=== PATIENT | male | born 1950 | race Caucasian/White ===

== ENCOUNTER 2018-06-26 18:34 | Inpatient (IN) | payer OTHER ==
--- NOTE | 2018-06-26 19:15 | EDPHY ---
H & P Stated Complaint: Colon CA with mets to liver w/ fever x 2 days and nausea/ vomiting Time Seen by Provider: 06/26/18 19:15 HPI/ROS: CHIEF COMPLAINT: Fever, N/V, red and swollen stoma HISTORY OF PRESENT ILLNESS: The patient is a 67 y/o male with metastatic stage 4 colon cancer on chemotherapy arriving with his complaining of intermittent fevers, nausea, vomiting, loose stool,and a red, swollen stoma over the last 5 days. He reports his fever reached 101F today and he has been treating with Aleve, though he vomited at least one dose of this today. He started chemotherapy treatment [address] Diamond and his most recent treatment was 10 days ago. His reports he is losing weight. Today he has vomited several times, most recently after trying to eat 2 hours ago. His administered SL Zofran after this episode. His oral intake has been less than normal. Both are concerned about the appearance of his stoma--it seems red and swollen. His stool has been loose/liquid. He denies dyspnea, chest pain, abdominal pain, recent illness, or recent trauma. REVIEW OF SYSTEMS: A ten system review of systems was performed and is negative with the exception of the items mentioned in the HPI. Past medical history: Metastatic colon cancer stage 4 Past surgical history: Colectomy; CABG Family history: Noncontributory Social history: at bedside. Lives at [facility]. Oncologist: Dr. Diamond. General Appearance: Alert. Vital signs reviewed. HR 122, afebrile. Eyes: Pupils equal and round, no conjunctival injection, no discharge. Anicteric. ENT, Mouth: Mucous membranes are moist, no oropharyngeal erythema or edema. Neck: No lymphadenopathy, supple. Respiratory: Lungs are clear to auscultation; no wheezes, rales, or rhonchi. Cardiovascular: Tachycardic regular; no murmur, rub, or gallop. Port right chest. Gastrointestinal: Abdomen is soft and nontender, no masses or organomegaly. Stoma: beefy red and protruding Skin: Warm and dry, no rashes on exposed skin, normal color. Back: Nontender to palpation over the thoracolumbar spine. No CVAT. Extremities: No lower extremity edema, no calf tenderness or swelling. Neurological: Alert and oriented. Moving all four extremities easily and equally. Psychiatric: Normal affect. - Medical/Surgical History Hx Asthma: No Hx Chronic Respiratory Disease: No Hx Diabetes: No Hx Cardiac Disease: No Hx Renal Disease: No Hx Cirrhosis: No Hx Alcoholism: No Hx HIV/AIDS: No Hx Splenectomy or Spleen Trauma: No Other PMH: Colon CA with mets to liver, [place] - Social History Smoking Status: Never smoked Constitutional: Initial Vital Signs Temperature (C) 36.6 C 06/26/18 18:43 Heart Rate 122 H 06/26/18 18:43 Respiratory Rate 18 06/26/18 18:43 Blood Pressure 148/97 H 06/26/18 18:43 O2 Sat (%) 96 06/26/18 18:43 O2 Delivery Mode Room Air O2 (L/minute) 2 Allergies/Adverse Reactions: No Known Allergies Allergy (Unverified 06/26/18 18:42) Home Medications: Medication Instructions Recorded Multivitamins [Multivitamin (*)] 1 each PO DAILY 06/27/18 Naproxen Sodium [Aleve 220 MG (*)] 220 mg PO BID PRN 06/27/18 OLANZapine [ZyPREXA 2.5 mg (*)] 2.5 mg PO DAILY 06/27/18 Prochlorperazine Maleate 10 mg PO QID PRN 06/27/18 [Compazine 10mg (*)] oxyCODONE IR [Oxycodone Ir (*)] 15 mg PO QID PRN 06/27/18 Medical Decision Making - Diagnostics Imaging: I viewed and interpreted images myself ED Course/Re-evaluation: Plan for IV, labs, UA, EKG, chest x-ray. 1L IV NS ordered. Chest x-ray: no pneumonia. Patient is hypokalemic at 2.9, likely due to vomiting. 40meq potassium ordered. He has not vomited in ED. Stool in bag is brown, soft. Afebrile. Tachycardia improving with IVF. He is being admitted for continued anti-emetics, IVF, might need stool studies if has diarrhea. I suspect ostomy prolapse, do not find other problems with ostomy, aside from small amount of leakage. I do not recommend antibiotics at this time. WBC not elevated. No urinary symptoms, although UA abnormal. - Data Points Laboratory Results: Laboratory Results 06/27/18 05:00 06/27/18 05:00 Medications Given: Discontinued Medications Sodium Chloride (Ns) 1,000 mls @ 0 mls/hr IV ONCE ONE; Wide Open PRN Reason: Protocol Stop: 06/26/18 19:41 Last Admin: 06/26/18 19:35 Dose: 1,000 mls Sodium Chloride (Ns) 1,000 mls @ 75 mls/hr IV CONT MARIE Stop: 12/24/18 00:29 Last Admin: 06/27/18 14:02 Dose: 1,000 mls Ondansetron HCl (Zofran) 4 mg IVP Q4HRS PRN PRN Reason: Nausea/Vomiting, Can't Take PO Stop: 12/24/18 00:25 Last Admin: 06/27/18 11:06 Dose: 4 mg Ondansetron HCl (Zofran Odt) 4 mg PO Q4HRS PRN PRN Reason: Nausea/Vomiting, Use 1st Stop: 12/24/18 00:25 Last Admin: 06/27/18 19:27 Dose: 4 mg Oxycodone HCl (Oxycodone Ir) 5 - 10 mg PO Q3HRS PRN PRN Reason: Pain, Severe Able to Take PO Stop: 07/07/18 00:25 Last Admin: 06/28/18 10:11 Dose: 10 mg Potassium Chloride (Klor-Con) 40 meq PO ONCE ONE Stop: 06/26/18 21:49 Last Admin: 06/26/18 21:57 Dose: 40 meq Potassium Chloride (Klor-Con) 10 - 40 meq PO ONCE ONE PRN Reason: Protocol Stop: 06/27/18 10:53 Last Admin: 06/27/18 11:02 Dose: 40 meq Potassium Chloride (Klor-Con) 10 - 40 meq PO ONCE ONE PRN Reason: Protocol Stop: 06/27/18 19:24 Last Admin: 06/27/18 20:14 Dose: 30 meq Potassium Chloride (Klor-Con) 20 meq PO ONCE ONE PRN Reason: Protocol Stop: 06/28/18 07:15 Last Admin: 06/28/18 08:11 Dose: 20 meq Departure - Departure Disposition: [facility] Acute Clinical Impression: Hypokalemia, Intestinal stoma prolapse Colon cancer Qualifiers: Colon location: unspecified part of colon Qualified Code(s): C18.9 - Malignant neoplasm of colon, unspecified Fever Qualifiers: Fever type: unspecified Qualified Code(s): R50.9 - Fever, unspecified Condition: Fair Report Scribed for: Roopa Gomez Report Scribed by: Yana Araujo Date of Report: 06/26/18 Time of Report: 20:53 Physician Review and Approval Statement: 06/26/18 19:15 Portions of this note were transcribed by the medical van driver. I, Dr. Roopa Gomez, personally performed the history, physical exam, and medical decision- making; and confirmed the accuracy of the information in the transcribed note.
[2018-06-26] MEDS ORDERED: NS 1,000 ML IV ONE (19:40)
[2018-06-26 19:57] LABS: PLATELET COUNT 60 10^3/uL (150-400)
[2018-06-26 20:06] LABS: INR 1.22 (0.83-1.16); PROTIME(PATIENT) 15.6 SEC (12.0-15.0)
[2018-06-26] MEDS ORDERED: POTASSIUM CL 20 MEQ TAB PO ONE (21:48)
[2018-06-27] MEDS ORDERED: ACETAMINOPHEN 325 MG TAB PO PRN (00:26)
[2018-06-27] MEDS ORDERED: ONDANSETRON DISINTEGRATING 4 MG TAB PO PRN (00:26)
[2018-06-27] MEDS ORDERED: ONDANSETRON 4 MG/2 ML VIAL IVP PRN (00:26)
[2018-06-27] MEDS: NS 1,000 ML IV SCH ×2 (00:48→14:02)
[2018-06-27 05:39] LABS: PLATELET COUNT 43 10^3/uL (150-400)
[2018-06-27] MEDS ORDERED: PROTOCOL POTASSIUM 1 DOSE MISC PRN (05:50)
--- NOTE | 2018-06-27 08:47 | PDGENHP ---
History and Physical - Chief Complaint Fever nausea vomiting and diarrhea - History of Present Illness Source-patient provides history appears reliable. EMR was reviewed and case discussed with ED provider. HPI-this is a very pleasant 67-year-old gentleman with past medical history significant for stage IV metastatic colon cancer, chronic pain, CAD status post CABG who presents emergency department today with complaints of 5 days of fevers chills nausea and vomiting. Patient also concerned regarding protrusion of his stoma and liquid diarrhea. Patient reports home temperature of 101 F. He has had declined oral intake and report of some weight loss. Patient reports significant fatigue as well today. His symptoms have resolved since his admission from the ER. Patient received chemotherapy and followed by Dr. Diamond (oncology) with his last dose being 10 days ago. Patient denies any hematemesis. He does report also seeing ben blood in his ostomy which had him concerned this was 2 days ago. He has not been on antibiotic therapy recently. Currently patient reports that he just feels really tired and wants to sleep. History Information - Allergies/Home Medication List Allergies/Adverse Reactions: No Known Allergies Allergy (Unverified 06/26/18 18:42) Home Medications: OLANZapine 06/26/18 [Last Taken Unknown] Zofran 06/26/18 [Last Taken Unknown] oxyCODONE CR 06/26/18 [Last Taken Unknown] I have personally reviewed and updated: family history, medical history, social history, surgical history - Past Medical History Additional medical history: Colon cancer stage IV. CAD with history DE in 2008 status post a CABG. Chronic pain with history of opiate use - Surgical History Additional surgical history: CABG, cath, colonoscopy, colon resection with ostomy - Family History Additional family history: Mother - with history of colon cancer - Social History Smoking Status: Never smoked Alcohol Use: None Drug Use: None Additional social history: Patient is and lives at [facility]. Cor status is full. Review of Systems Review of Systems: ROS: 10pt was reviewed & negative except for what was stated in HPI & below Physical Exam Physical Exam: Selected Entries 06/26/18 18:43 Blood Pressure Automatic Method Heart Rate 122 H Respiratory 18 Rate O2 Sat (%) 96 Temperature (C) 36.6 C Blood Pressure 148/97 H Mean Arterial 114 H Pressure (MAP) O2 Delivery Room Air Mode Temperature Oral Source Temp Pulse Resp BP Pulse Ox 36.8 C 85 18 115/75 97 11/03/18 07:50 06/27/18 07:50 06/27/18 07:50 06/27/18 07:50 06/27/18 07:50 O2 (L/minute) 2 Constitutional: no apparent distress, not in pain, chronically ill appearing, uncomfortable (Mild with movement), cachectic, other (NAD. Patient appears chronically ill and pale. He is asleep in bed and falls asleep intermittently during the interview. Does appear fatigued.) Eyes: PERRL (Decreased reactivity light bilaterally but and symmetric.), anicteric sclera, EOMI, No scleral injection Ears, Nose, Mouth, Throat: dry mucous membranes, other (No nasal discharge.), No no oral mucosal ulcers, No poor dentition Cardiovascular: regular rate and rhythym, no murmur, rub, or gallop, No edema Peripheral Pulses: 1+: dorsalis-pedis (R), dorsalis-pedis (L) Respiratory: no respiratory distress, no rales or rhonchi, clear to auscultation Gastrointestinal: normoactive bowel sounds, soft, non-tender abdomen, no palpable masses, other (Patient with stoma opening in the left lower quadrant. The margins of the stoma are well healed. Patient does have some loose brown stool in the bag. This was removed for further evaluation of the stoma. Patient explains that his concern was the stoma was protruding outward from his abdomen but now is below his skin.), No distension Genitourinary: no bladder tenderness, No gray in urethra Skin: warm, no rashes or abrasions, other ([place]) Musculoskeletal: generalized weakness (Patient is able to move all extremities but he is grossly weak.), No pain with ROM Neurologic: AAOx3, sensation intact bilaterally, weakness, other (Grossly nonfocal exam.), No CN II-XII Intact, No facial droop Psychiatric: interacting appropriately, not anxious, not encephalopathic, thought process linear, flat affect, other (Patient appears quite fatigued. He does fall asleep intermittently but he is otherwise pleasant and cooperative. Patient in good spirits.), No encephalopathic, No poor insight, No poor judgement, No poor memory Lab Data & Imaging Review 06/27/18 05:00 06/27/18 05:00 WBC 3.17 10^3/uL (3.80-9.50) L 06/27/18 05:00 RBC 3.55 10^6/uL (4.40-6.38) L 06/27/18 05:00 Hgb 11.7 g/dL (13.7-17.5) L 06/27/18 05:00 Hct 34.4 % (40.0-51.0) L 06/27/18 05:00 MCV 96.9 fL (81.5-99.8) 06/27/18 05:00 MCH 33.0 pg (27.9-34.1) 06/27/18 05:00 MCHC 34.0 g/dL (32.4-36.7) 06/27/18 05:00 RDW 16.4 % (11.5-15.2) H 06/27/18 05:00 Plt Count 43 10^3/uL (150-400) L 06/27/18 05:00 MPV 12.0 fL (8.7-11.7) H 06/27/18 05:00 Neut % (Auto) 62.5 % (39.3-74.2) 06/27/18 05:00 Lymph % (Auto) 30.9 % (15.0-45.0) 06/27/18 05:00 [place] % (Auto) 3.8 % (4.5-13.0) L 06/27/18 05:00 Eos % (Auto) 1.6 % (0.6-7.6) 06/27/18 05:00 Baso % (Auto) 0.9 % (0.3-1.7) 06/27/18 05:00 Nucleat RBC Rel Count 0.0 % (0.0-0.2) 06/27/18 05:00 Absolute Neuts (auto) 1.98 10^3/uL (1.70-6.50) 06/27/18 05:00 Absolute Lymphs (auto) 0.98 10^3/uL (1.00-3.00) L 06/27/18 05:00 Absolute Monos (auto) 0.12 10^3/uL (0.30-0.80) L 06/27/18 05:00 Absolute Eos (auto) 0.05 10^3/uL (0.03-0.40) 06/27/18 05:00 Absolute Basos (auto) 0.03 10^3/uL (0.02-0.10) 06/27/18 05:00 Absolute Nucleated RBC 0.00 10^3/uL (0-0.01) 06/27/18 05:00 Immature Gran % 0.3 % (0.0-1.1) 06/27/18 05:00 Immature Gran # 0.01 10^3/uL (0.00-0.10) 06/27/18 05:00 Platelet Estimate DECREASED (ADEQ) L 06/27/18 05:00 PT 15.6 SEC (12.0-15.0) H 06/26/18 19:52 INR 1.22 (0.83-1.16) H 06/26/18 19:52 APTT 28.8 SEC (23.0-38.0) 06/26/18 19:52 VBG Lactic Acid 1.2 mmol/L (0.7-2.1) 06/26/18 19:35 Sodium 141 mEq/L (135-145) 06/27/18 05:00 Potassium 3.1 mEq/L (3.3-5.0) L 06/27/18 05:00 Chloride 110 mEq/L (97-110) 06/27/18 05:00 Carbon Dioxide 26 mEq/l (22-31) 06/27/18 05:00 Anion Gap 5 mEq/L (6-14) L 06/27/18 05:00 BUN 12 mg/dL (7-23) 06/27/18 05:00 Creatinine 0.9 mg/dL (0.7-1.3) 06/27/18 05:00 Estimated GFR > 60 06/27/18 05:00 Glucose 83 mg/dL (70-100) 06/27/18 05:00 Calcium 8.2 mg/dL (8.5-10.4) L 06/27/18 05:00 Magnesium 1.8 mg/dL (1.6-2.3) 06/27/18 05:00 Total Bilirubin 0.7 mg/dL (0.1-1.4) 06/26/18 19:52 Urine Color YELLOW 06/26/18 20:35 Urine Appearance CLEAR 06/26/18 20:35 Urine pH 6.0 (5.0-7.5) 06/26/18 20:35 Ur Specific [place] 1.013 (1.002-1.030) 06/26/18 20:35 Urine Protein NEGATIVE (NEGATIVE) 06/26/18 20:35 Urine Ketones TRACE (NEGATIVE) H 06/26/18 20:35 Urine Blood NEGATIVE (NEGATIVE) 06/26/18 20:35 Urine Nitrate NEGATIVE (NEGATIVE) 06/26/18 20:35 Urine Bilirubin NEGATIVE (NEGATIVE) 06/26/18 20:35 Urine Urobilinogen NEGATIVE EU (0.2-1.0) 06/26/18 20:35 Ur Leukocyte Esterase 1+ (NEGATIVE) H 06/26/18 20:35 Urine RBC 3-5 /hpf (0-3) H 06/26/18 20:35 Urine WBC 15-25 /hpf (0-3) H 06/26/18 20:35 Ur Epithelial Cells NONE SEEN /lpf (NONE-1+) 06/26/18 20:35 Calcium Oxalate Crystal PRESENT /hpf (NONE-1+) 06/26/18 20:35 Urine Mucus TRACE /lpf (NONE-1+) 06/26/18 20:35 Urine Glucose NEGATIVE (NEGATIVE) 06/26/18 20:35 Imaging Review: Chest, Two Views at 1859 hours History: Meets sepsis criteria, suspected infection Comparison: December 2017 Findings: Cardiac silhouette is within normal range. Median sternotomy wires and mediastinal clips. Right Mediport catheter superior vena cava. Diffuse idiopathic skeletal hyperostosis with syndesmophytes in the thoracic spine. No definite pneumonia. No congestive heart failure, pleural effusion, or pneumothorax. Impression: No focal pneumonia. Dictated By: Dany Lam *This report was compiled using a voice recognition dictation system and may contain typographical errors* 47 T: PSCRIBE 06/26/181947 Electronically Signed by: Dany Lam 06/26/181950 Assessment & Plan Assessment: Pleasant 67-year-old gentleman with a history of cough metastatic colon cancer stage IV currently undergoing chemotherapy and status post a colon resection with ostomy placement presents with complaints of several days of nausea vomiting and distension of his stoma Intestinal stoma prolapse (Acute)- at time of my interview patient's stoma had completely on regressed in the patient's abdomen. There is no portion of which was protruding outside of the skin. I did review the patient's stoma with the nurse at bedside and the bag was replaced it has been leaking. He does have on dark yellow-brown in the bag. Hypokalemia (Acute) - secondary to GI losses. Continue with on antiemetics and oral replacement as Colon cancer (Acute) stage IV undergoing chemotherapy followed by Dr. Diamond. If patient should stay additional day consider consultation. Defer to day team. Fever (Acute) - patient without a leukocytosis and has been afebrile overnight in the hospital. He does have increased risk with on being on chemotherapy. Will plan to continue to monitor at this time. Patient likely has viral syndrome. No recent history of antibiotics. Patient's stool is much more formed than when he arrived. Will continue to monitor closely for fevers. Hold off on antibiotic therapy at this time. Thrombocytopenia - 60 K down to 40 K. Continue to monitor platelet count closely. No current evidence of active bleeding although patient did report some blood in his stoma a few days ago. Holding anticoagulation in setting of thrombocytopenia. Chronic pain - p.r.n. Medications will be made available. At this time patient reports he is just tired and wants to sleep. FEN - IVF overnight until such time the patient is able to tolerate oral intake successfully. Electrolyte replacement as noted above. Advance diet as tolerated to regular. PPX-SCDs. Holding anticoagulation in setting of thrombocytopenia. SCDs as tolerated. Cor status-full Disposition-patient has been admitted to observation status on medical surge floor in for further observation, electrolyte replacement and repeat laboratory testing.
[2018-06-27] MEDS ORDERED: POTASSIUM CL 10 MEQ TAB PO ONE ×2 (10:52→19:23)
[2018-06-27] MEDS: oxyCODONE IR 5 MG TAB PO PRN ×3 (11:02→23:27)
--- NOTE | 2018-06-27 11:59 | HOSPPROG ---
Hospitalist Progress Note Assessment/Plan: # fever - only localizing symptom is diarrhea - follow BCx # diarrhea - d/t chemo vs infection; abd exam reassuring - check GI pathogen panel # ostomy prolapse - may have been d/t diarrhea; appears ok now # stage IV colon cancer s/p emergent resection for perforation, currently on folfiri - discussed with Dr Bolden, he is available to consult if needed # pancytopenia d/t chemo # hypoK - replacing per protocol Subjective: no fevers since admission; discussed with Dr Bolden Objective: Vital Signs Temp Pulse Resp BP Pulse Ox 36.7 C 83 14 133/85 H 96 06/27/18 10:50 06/27/18 10:50 06/27/18 10:50 06/27/18 10:50 06/27/18 10:50 Laboratory Results 06/27/18 05:00 06/27/18 05:00 06/26/18 06/27/18 06/28/18 05:59 05:59 04:59 Intake Total 1000 Output Total 300 400 Balance 700 -400 PT 15.6 SEC (12.0-15.0) H 06/26/18 19:52 INR 1.22 (0.83-1.16) H 06/26/18 19:52 35 mins of direct prolonged patient care time today - Physical Exam Constitutional: no apparent distress, appears nourished Cardiovascular: regular rate and rhythym, no murmur, rub, or gallop Respiratory: no respiratory distress, no rales or rhonchi, clear to auscultation Gastrointestinal: soft, non-tender abdomen, no palpable masses, other (ostomy ok ; ) ICD10 Worksheet Patient Problems: Problems Problem Status Onset Hypokalemia Acute Colon cancer Acute Fever Acute Intestinal stoma prolapse Acute
--- NOTE | 2018-06-27 16:08 | ASMTCMCOM ---
CM Note CM Note Notes: Met with pt, he and his just moved into [facility], normally they are independent in ADLs. Unfortunately, his is in the ER being worked up for abdominal pain and diarrhea. DC needs unclear CM w/f. DC Plan: TBD Date Signed: 06/27/2018 04:04 PM Electronically Signed By:Che Rider RN
[2018-06-28] MEDS ORDERED: POTASSIUM CL 10 MEQ TAB PO ONE (07:14)
--- NOTE | 2018-06-28 08:27 | PDMN ---
Medical Necessity Medical necessity: Change to IP, as of 06/27/18, per MD; los >2 mn for ongoing management of diarrhea w/ostomy prolapse, pancytopenia & hypokalemia r/t chemo vs infection; requiring further monitoring, GI pathogen panel/follow-up labs, Wound Care consult, IVFs & potassium protocol; hx stage IV colon cancer s/p emergent resection for perforation
[2018-06-28 09:37] VITALS: BP 132/85
[2018-06-28] MEDS: oxyCODONE IR 5 MG TAB PO PRN (10:11)
--- NOTE | 2018-06-28 12:15 | ASMTLACE ---
LACE Length of stay for Answers: Less than 1 day current admission Acuity / Level of Answers: No Care: Did the patient have an inpatient admission? Comorbidities - select Answers: Coronary Artery Disease all that apply Other Notes: Stage IV Colon Ca # of Emergency department Answers: 1-2 visits in the last 6 months Score: 4 Date Signed: 06/28/2018 12:15 PM Electronically Signed By:Deborah Garcia RN
--- NOTE | 2018-06-28 12:22 | ASDISCHSUM ---
Discharge Information Plan Status:Home with No Needs Medically Cleared to Leave:06/28/2018 Discharge Date:06/28/2018 10:46 AM CM D/C Disposition:Home, Routine, Self-Care ADT D/C Disposition:Home, Routine, Self-Care Projected Discharge Date:06/28/2018 10:46 AM Transportation at D/C:Family Discharge Delay Reason: Follow-Up Date:06/28/2018 10:46 AM Discharge Slot:2 - 12:01 pm - 18:00 pm Final Diagnosis:Fever, diarrhea, ostomy prolapse, stage IV colon cancer, pancytopenia, hypokalemia Placement Information Patient Contact Information Contact Name:BRYN Relationship: Address:[address] City:[place] Alternate Phone: State/Zip Code:[place] [address] Email: Financial Information Financial Class:Medicare Primary Plan Desc:MEDICARE OUTPATIENT Primary Plan Number:[id number] Secondary Plan Desc:[employer] Secondary Plan Number:[id number] Assessment Information LACE LACE Length of stay for Answers: Less than 1 day current admission Acuity / Level of Answers: No Care: Did the patient have an inpatient admission? Comorbidities - select Answers: Coronary Artery Disease all that apply Other Notes: Stage IV Colon Ca # of Emergency department Answers: 1-2 visits in the last 6 months Score: 4 Date Signed: 06/28/2018 12:15 PM Electronically Signed By:Deborah Garcia RN [facility] REA Progress Note CM Donny LUCIA Note Notes: Met with pt, he and his just moved into [facility], normally they are independent in ADLs. Unfortunately, his is in the ER being worked up for abdominal pain and diarrhea. DC needs unclear CM w/f. DC Plan: TBD Date Signed: 06/27/2018 04:04 PM Electronically Signed By:Che Rider RN Case Management Discharge Plan Note Case Management Discharge Discharge Order Complete? Answers: Yes Patient to Obtain Answers: via Family Medications Transportation Arranged Answers: Family/Friends Transport will Pick (Date 06/28/2018 12:00 AM & Time) EMTALA Complete Answers: No Notes: N/A Case Management Transport Answers: No Notes: N/A Form Complete Faxed Final Orders Answers: No Notes: N/A Agency/Facility Transfer Answers: No Notes: N/A Report Printed & Faxed to Receiving Agency Family Notified Answers: Yes Notes: alerted Discharge Comments Notes: Reviewed chart regarding discharge plan of care, pt's progress. Pt to discharge home independently with family support and no identified needs. Pt lives at [facility], in independent living. No IM/SPENCER forms signed, pt admission less than 24 hrs. Pt to follow up as directed. CM available for any further issues or concerns. Discharge Plan: Home Independently Date Signed: 06/28/2018 12:20 PM Electronically Signed By:Deborah Garcia RN Intervention Information Intervention Type:SPENCER-Not Delivered Date of Service:06/28/2018 12:15 PM Patient Type:Inpatient Staff Member:MATHIEU Garcia Taylor Hours: Discipline: Severity: Comment:Pt admission <24 hrs. Intervention Type:IM-Pt. Not Available Date of Service:06/28/2018 12:15 PM Patient Type:Inpatient Staff Member:MATHIEU Garcia Taylor Hours: Discipline: Severity: Comment:Pt admission <24 hrs.
--- NOTE | 2018-06-28 12:39 | GDS ---
ALL DIAGNOSES: 1. Fever. 2. Diarrhea. 3. Ostomy prolapse. 4. Stage IV colon cancer status post emergent resection for perforation currently being treated on F OLFIRI. 5. Pancytopenia due to chemotherapy. 6. Hypokalemia. HOSPITAL COURSE: A 67-year-old man admitted with fever as well as diarrhea. He had some concern abo ut his ostomy; although, it appeared to be functioning normally and had a normal appearance. He did have some loose stools. He had been receiving FOLFIRI by Dr. Diamond. There are no clear localizing s ymptoms for his fever other than diarrhea. Stool sample was negative for any pathogen. Diarrhea has self-resolved. He has not had any additional fevers here. His blood cultures are no growth to date . He is eating well and tolerating food. He is discharged in stable condition with no changes in me s medications. He will follow up with Dr. Diamond on July 06. BILLING: I spent more than 30 minutes on the day of discharge coordinating care. /[id number]
== END 2018-06-28 10:46 | disposition home or self-care (01) | DRG 640 ==
LOC: F3E 06-27 00:05 → OBSVTOIN 06-27 18:24
PROVIDERS: ADMIT Family Medicine; ATTEND Family Medicine
DX: E87.6 Hypokalemia (principal); D61.810 Antineoplastic chemotherapy induced pancytopenia; C18.9 Malignant neoplasm of colon, unspecified; E86.9 Volume depletion, unspecified; R19.7 Diarrhea, unspecified; G89.29 Other chronic pain; I25.10 Atherosclerotic heart disease of native coronary artery without angina pectoris; Z95.1 Presence of aortocoronary bypass graft; Z93.4 Other artificial openings of gastrointestinal tract status
CPT/HCPCS: J1642; J2405

== ENCOUNTER 2018-07-07 12:02 | Inpatient (IN) | payer OTHER ==
[2018-07-07] MEDS ORDERED: ONDANSETRON 4 MG/2 ML VIAL IVP ONE (12:58)
[2018-07-07] MEDS ORDERED: NS 1,000 ML IV ONE (12:58)
[2018-07-07 13:05] LABS: PLATELET COUNT 134 10^3/uL (150-400)
--- NOTE | 2018-07-07 13:09 | EDPHY ---
H & P Stated Complaint: continued n/v seen last week compazine not working Time Seen by Provider: 07/07/18 12:52 HPI/ROS: CHIEF COMPLAINT: Vomiting, fever HISTORY OF PRESENT ILLNESS: 67-year-old male with metastatic colon cancer presents with vomiting and fever. Onset of vomiting yesterday. Took Compazine and Zofran without relief. Recurrent vomiting this morning, unable to tolerate oral fluids or food. Associated with a fever of 101 this morning. He went to the cancer center for chemotherapy, but was neutropenic and did not receive chemotherapy. Last chemotherapy was 2.5 weeks ago. No abdominal pain or diarrhea. REVIEW OF SYSTEMS: complete 10 point ROS reviewed and is negative except for the noted elements in the HPI - Personal History Current Tetanus Diphtheria and Acellular Pertussis (TDAP): Yes - Medical/Surgical History Hx Asthma: No Hx Chronic Respiratory Disease: No Hx Diabetes: No Hx Cardiac Disease: No Hx Renal Disease: No Hx Cirrhosis: No Hx Alcoholism: No Hx HIV/AIDS: No Hx Splenectomy or Spleen Trauma: No Other PMH: Colon CA with mets to liver, [place] - Social History Smoking Status: Never smoked Alcohol Use: Sober Additional Social History: - Physical Exam Exam: General Appearance: Alert, pleasant Eyes: Pupils equal and round, no conjunctival pallor or injection ENT, Mouth: Mucous membranes dry Neck: Normal inspection Respiratory: Lungs are clear to auscultation Cardiovascular: Regular rate and rhythm Gastrointestinal: Abdomen is soft, epigastric tenderness Neurological: A&O, nonfocal, normal gait Skin: Warm and dry Extremities: Normal inspection Psychiatric: Mood and affect normal Constitutional: Initial Vital Signs Temperature (C) 36.9 C 07/07/18 12:05 Heart Rate 83 07/07/18 12:05 Respiratory Rate 17 07/07/18 12:05 Blood Pressure 122/91 H 07/07/18 12:05 O2 Sat (%) 98 07/07/18 12:05 O2 Delivery Mode Room Air Allergies/Adverse Reactions: No Known Allergies Allergy (Verified 07/07/18 12:04) Home Medications: Medication Instructions Recorded Multivitamins [Multivitamin (*)] 1 each PO DAILY 06/27/18 Naproxen Sodium [Aleve 220 MG (*)] 220 mg PO BID PRN 06/27/18 OLANZapine [ZyPREXA 2.5 mg (*)] 2.5 mg PO DAILY 06/27/18 Prochlorperazine Maleate 10 mg PO QID PRN 06/27/18 [Compazine 10mg (*)] oxyCODONE IR [Oxycodone Ir (*)] 15 mg PO QID PRN 06/27/18 Medical Decision Making - Diagnostics Imaging Results: Imaging Impressions Chest X-Ray 07/07/18 13:06 Impression: 1. Mild bronchitis/airways disease. 2. No definite focal pneumonia or pleural effusion. Imaging: I viewed and interpreted images myself ED Course/Re-evaluation: Patient with metastatic colon cancer presents with recurrent vomiting. Old medical record reviewed. Similar presentation earlier this month. He is afebrile now, but had a fever at home. He is nontoxic-appearing, without localizing signs of infection. IV normal saline and Zofran 4 mg IV given. Chest x-ray is unremarkable. Laboratory tests reveal WBC 1.8, ANC 575; will hold antibiotics for now, pending UA. The hospitalist service was consulted for admission. 8:45pm addendum: UA reveals UTI, urine cx already sent and Cefipime given. Differential Diagnosis: Differential diagnosis includes though it is not limited to appendicitis, cholecystitis, diverticulitis, pyelonephritis, bowel perforation, small bowel obstruction. - Data Points Laboratory Results: Laboratory Results 07/07/18 12:43 07/07/18 12:43 07/07/18 07/07/18 12:43 12:43 WBC 1.78 10^3/uL L 10^3/uL (3.80-9.50) RBC 3.78 10^6/uL L 10^6/uL (4.40-6.38) Hgb 12.6 g/dL L g/dL (13.7-17.5) Hct 36.0 % L % (40.0-51.0) MCV 95.2 fL fL (81.5-99.8) MCH 33.3 pg pg (27.9-34.1) MCHC 35.0 g/dL g/dL (32.4-36.7) RDW 17.2 % H % (11.5-15.2) Plt Count 134 10^3/uL L 10^3/uL (150-400) MPV 11.4 fL fL (8.7-11.7) Neut % (Auto) 32.6 % L % (39.3-74.2) Lymph % (Auto) 42.1 % % (15.0-45.0) [place] % (Auto) 21.9 % H % (4.5-13.0) Eos % (Auto) 1.7 % % (0.6-7.6) Baso % (Auto) 1.7 % % (0.3-1.7) Nucleat RBC Rel Count 0.0 % % (0.0-0.2) Absolute Neuts (auto) 0.58 10^3/uL L 10^3/uL (1.70-6.50) Absolute Lymphs (auto) 0.75 10^3/uL L 10^3/uL (1.00-3.00) Absolute Monos (auto) 0.39 10^3/uL 10^3/uL (0.30-0.80) Absolute Eos (auto) 0.03 10^3/uL 10^3/uL (0.03-0.40) Absolute Basos (auto) 0.03 10^3/uL 10^3/uL (0.02-0.10) Absolute Nucleated RBC 0.00 10^3/uL 10^3/uL (0-0.01) Immature Gran % 0.0 % % (0.0-1.1) Immature Gran # 0.00 10^3/uL 10^3/uL (0.00-0.10) Platelet Estimate DECREASED L (ADEQ) Sodium 139 mEq/L mEq/L (135-145) Potassium 2.7 mEq/L L* mEq/L (3.3-5.0) Chloride 107 mEq/L mEq/L (97-110) Carbon Dioxide 26 mEq/l mEq/l (22-31) Anion Gap 6 mEq/L mEq/L (6-14) BUN 10 mg/dL mg/dL (7-23) Creatinine 1.0 mg/dL mg/dL (0.7-1.3) Estimated GFR > 60 Glucose 101 mg/dL H mg/dL (70-100) Calcium 8.6 mg/dL mg/dL (8.5-10.4) Total Bilirubin 0.7 mg/dL mg/dL (0.1-1.4) Conjugated Bilirubin 0.3 mg/dL mg/dL (0.0-0.5) Unconjugated Bilirubin 0.4 mg/dL mg/dL (0.0-1.1) AST 61 IU/L H IU/L (17-59) ALT 49 IU/L IU/L (21-72) Alkaline Phosphatase 81 IU/L IU/L (38-126) Total Protein 5.6 g/dL L g/dL (6.3-8.2) Albumin 3.3 g/dL L g/dL (3.5-5.0) Lipase 686 IU/L H IU/L (23-300) Medications Given: Cefepime HCl 2 gm/ Sodium (Chloride) 100 mls @ 200 mls/hr IV Q8HRS MARIE PRN Reason: Protocol Stop: 08/06/18 16:31 Last Admin: 07/07/18 17:05 Dose: 100 mls Oxycodone HCl (Oxycodone Ir) 15 mg PO QID PRN PRN Reason: Pain, Moderate Stop: 07/17/18 16:24 Last Admin: 07/07/18 17:05 Dose: 15 mg Discontinued Medications Sodium Chloride (Ns) 1,000 mls @ 0 mls/hr IV EDNOW ONE; Wide Open PRN Reason: Protocol Stop: 07/07/18 12:59 Last Admin: 07/07/18 13:24 Dose: 1,000 mls Potassium Chloride (Potassium Cl 10 Meq (Premix)) 100 mls @ 100 mls/hr IV EDNOW ONE Stop: 07/07/18 14:35 Last Admin: 07/07/18 13:50 Dose: 100 mls Ondansetron HCl (Zofran) 4 mg IVP EDNOW ONE Stop: 07/07/18 12:59 Last Admin: 07/07/18 13:24 Dose: 4 mg Departure - Departure Disposition: [facility] Acute Clinical Impression: Neutropenic fever Urinary tract infection Qualifiers: Urinary tract infection type: acute cystitis Hematuria presence: without hematuria Qualified Code(s): N30.00 - Acute cystitis without hematuria Condition: Fair
[2018-07-07] MEDS ORDERED: POTASSIUM Cl (KCl) 100 ML IV ONE (13:36)
[2018-07-07] MEDS ORDERED: ONDANSETRON DISINTEGRATING 4 MG TAB PO PRN (13:59)
[2018-07-07] MEDS ORDERED: ACETAMINOPHEN 325 MG TAB PO PRN (13:59)
[2018-07-07] MEDS ORDERED: ONDANSETRON 4 MG/2 ML VIAL IVP PRN (13:59)
[2018-07-07] MEDS ORDERED: NAPROXEN SODIUM 220 MG TAB PO PRN (16:25)
[2018-07-07] MEDS ORDERED: PROCHLORPERAZINE MALEATE 10 MG TAB PO PRN (16:25)
[2018-07-07] MEDS: oxyCODONE IR 15 MG TAB PO PRN ×2 (17:05→21:16)
[2018-07-07] MEDS: CEFEPIME HCL 2 GM in NS 100 ML IV SCH ×2 (17:05→21:26)
--- NOTE | 2018-07-07 17:39 | GHP ---
DATE OF ADMISSION: 07/07/2018 CHIEF COMPLAINT: Fevers, nausea, vomiting. PRIMARY ONCOLOGIST: Dr. Diamond HISTORY OF PRESENT ILLNESS: A 67-year-old male with recently diagnosed stage IV colon cancer and presenting with vomiting and fever. His last chemo was 2-1/ 2 weeks ago. Today he noted temperature of 101.5 at home with chills. Nonbloody emesis. He has had decreased output out of his colostomy. He saw Dr. cMcullough in regard to protrusion of this ostomy. No intervention at this time per patient report. Denies cough, dysuria. He has been more fatigued, been sleeping a lot. He has lost greater than 40 pounds in the last 6 months. Food does not taste good to him. Denies any ill contacts. No abdominal pain. He was hospitalized at [facility] 06/27 through 06/28 with fever and diarrhea. At that time, stool sample was negative, and the diarrhea itself has resolved. REVIEW OF SYSTEMS: I completed a 10-point review of systems, negative except as noted in HPI. PAST MEDICAL HISTORY: Known coronary disease status post CABG, chronic pain in the shoulders. PAST SURGICAL HISTORY: CABG, colon resection, ostomy in December, kidney stones. SOCIAL HISTORY: Used to live in [place] with his . They now live at [facility]. No alcohol, tobacco, or illicits. FAMILY HISTORY: A brother with colon cancer. ALLERGIES: None. HOME MEDICATIONS: Oxycodone 50 mg 4 times daily p.r.n., Phenergan, Zyprexa, naproxen, multivitamin. PHYSICAL EXAMINATION: VITAL SIGNS: Temperature 36.9, blood pressure 131/82, heart rate in the 80s, respirations 16, 98% on room air. GENERAL: He is pale and fatigued, but no acute distress. HEENT: PERRLA. Moist mucous membranes. Oropharynx clear. There is no ulceration or abscess. CV: Regular rate and rhythm. LUNGS: Clear. No crackles or wheezing. ABDOMEN: Soft, nontender. Ostomy in place with no surrounding erythema. Positive bowel sounds. : No suprapubic or CVA tenderness. MUSCULOSKELETAL: 5/5 upper and lower extremity strength. SKIN: He has excoriations on his shins, but no erythema to suggest cellulitis. NEURO: 2 through 12 intact. PSYCH: Alert and oriented x3. DIAGNOSTIC DATA: WBCs 1.7, hemoglobin 12, hematocrit 36, platelets 134. Sodium 139, potassium 2.7, chloride 107, creatinine 1, glucose 101, total bilirubin 0.7, AST 61, ALT 49, total protein 5.9, albumin 3.3. Lipase is 686. Chest x-ray is personally reviewed by me. No pneumonia. EKG: Normal sinus rhythm. UA normal. Blood cultures pending. Respiratory panel pending. ASSESSMENT AND PLAN: 1. Neutropenic fever:IV cefepime. Chest x-ray negative.UA, Resp PCR and blood cultures pending. Negative GI panel on the 3rd. 2. Stage IV colon cancer: prior colon resection for perforation. Being treated with FOLFIRI. 3. Pancytopenia: Chemotherapy related. No indication for transfusion. 4. Hypokalemia: Secondary to nausea and vomiting. Will replete. 5. Goals: I did broach palliative care, and he is open to consultation tomorrow. 6. Diet: As tolerated. 7. Deep venous thrombosis prophylaxis: Lovenox. 8. Patient warrants observation admission given fevers, concern for possible infection warranting intravenous fluids, antibiotics and potassium replacement. /[id number]/MODL MTDD
[2018-07-07] MEDS ORDERED: PROTOCOL POTASSIUM 1 DOSE MISC PRN (19:37)
[2018-07-07] MEDS: POTASSIUM Cl (KCl) 50 ML IV SCH (22:01)
[2018-07-08] MEDS: POTASSIUM Cl (KCl) 50 ML IV SCH (00:30)
[2018-07-08] MEDS: CEFEPIME HCL 2 GM in NS 100 ML IV SCH ×3 (04:51→21:45)
[2018-07-08] MEDS: NS 1,000 ML IV SCH (04:53)
[2018-07-08] MEDS: oxyCODONE IR 15 MG TAB PO PRN ×2 (04:54→19:18)
[2018-07-08 05:06] LABS: PLATELET COUNT 110 10^3/uL (150-400)
[2018-07-08] MEDS: ENOXAPARIN 40 MG/0.4 ML SYR SC SCH (09:26)
[2018-07-08] MEDS: MULTIVITAMINS 1 EACH TAB PO SCH (09:28)
[2018-07-08] MEDS: OLANZapine 2.5 MG TAB PO SCH (09:28)
[2018-07-08] MEDS ORDERED: POTASSIUM CL 10 MEQ TAB PO ONE (09:33)
--- NOTE | 2018-07-08 10:54 | CPEKG ---
Test Reason : OPEN Blood Pressure : / mmHG Vent. Rate : 078 BPM Atrial Rate : 078 BPM P-R Int : 192 ms QRS Dur : 096 ms QT Int : 436 ms P-R-T Axes : 064 014 015 degrees QTc Int : 497 ms SINUS RHYTHM PROBABLE INFERIOR INFARCT, AGE INDETERMINATE Confirmed by Jak Reaves ([id number]) on 07/08/2018 10:54:00 AM Referred By: Confirmed By:Jak Reaves
--- NOTE | 2018-07-08 10:58 | PDMN ---
Medical Necessity Medical necessity: Pt meets IP criteria per MD and MCG MG-SIC (Systemic or Infectious Condition); est los > 2 mn for ongoing tx and management of neutropenic fever; requiring IVF, IV ABX and potassium replacement; comorbid colon CA currently undergoing chemo
--- NOTE | 2018-07-08 11:14 | HOSPPROG ---
Hospitalist Progress Note Assessment/Plan: #Neutropenic fever: +UA, culture pending. Cont Cefepime #UTI: as above #Stage 4 colon cancer: complicated by perforation. Has ostomy #Hypokalemia: on protocol #Goal: Palliative care consulted #Diet: regular #DVT ppx: Lovenox #Disp: inpt admission, awaiting culture data. IV abx Subjective: weak still Objective: Vital Signs Temp Pulse Resp BP Pulse Ox 36.8 C 72 14 108/70 92 07/08/18 07:19 07/08/18 07:19 07/08/18 07:19 07/08/18 07:19 07/08/18 07:19 Microbiology 07/07/18 15:50 Respiratory Panel (PCR) - Final Nasal, Sinus - Swab No Organism Detected By Pcr Laboratory Results 07/08/18 04:50 07/08/18 04:50 07/07/18 07/08/18 07/09/18 05:59 05:59 05:59 Intake Total 1355 Output Total 275 350 Balance 1080 -350 - Time Spent With Patient Time Spent with Patient: greater than 35 minutes Time Spent with Patient: Greater than 35 minutes spent on this patients care, greater than 50% of time spent counseling, educating, and coordinating care regarding the above mentioned plan. - Physical Exam Constitutional: chronically ill appearing, cachectic Eyes: PERRL Ears, Nose, Mouth, Throat: moist mucous membranes Cardiovascular: regular rate and rhythym Respiratory: no respiratory distress Gastrointestinal: other (ostomy. No TTP, +BS) Genitourinary: No gray in urethra Skin: warm Musculoskeletal: full muscle strength Neurologic: AAOx3, CN II-XII Intact Psychiatric: interacting appropriately ICD10 Worksheet Patient Problems: Problems Problem Status Onset Neutropenic fever Acute Urinary tract infection Acute Colon cancer Acute Fever Acute Hypokalemia Acute Intestinal stoma prolapse Acute
[2018-07-08] MEDS ORDERED: POTASSIUM CL 20 MEQ/15 ML UDCUP PO ONE (11:15)
--- NOTE | 2018-07-08 14:33 | ASMTCMCOM ---
CM Note CM Note Notes: Patient plan of care reviewed in am rounds. He is very anxious to meet with palliative care as he feel both he and his would benefit form this service. Patient seen by Phil Brumfield and Ned SON from [facility] palliative to follow for needs. Plan to be determined. Plan: Likely dc home with support. Date Signed: 07/08/2018 02:32 PM Electronically Signed By:Flori Mary RN
--- NOTE | 2018-07-08 16:50 | ASMTCMCOM ---
CM Note CM Note Notes: Palliative order sent to [facility]. Date Signed: 07/08/2018 04:49 PM Electronically Signed By:Flori Mary RN
[2018-07-08] MEDS: SIMETHICONE 80 MG TAB CHEW PO PRN (20:07)
--- NOTE | 2018-07-08 21:07 | PDCONSULT ---
[employer] Supervisor Note: Patient is a 67-year-old male with a history of metastatic colon cancer on FOLFOX chemotherapy admitted for neutropenic fever. Patient reports for the last 2 weeks or so he has had decreased appetite, fatigue, nausea with vomiting. He presented for cycle 8 of FOLFOX on 2017. At that visit is a absolute neutrophil count was found to be 780 and his potassium was 2.6. He also reported a fever of 101-102 on the previous day. He was subsequently admitted for neutropenic fever and hypokalemia. Patient denies skin rash. He denies cough or shortness of breath. He denies dysuria or dyschezia. He denies any increase in ostomy output. He denies sore throat or cough. He denies any sick contacts. Past medical history: Metastatic colon cancer diagnosed 01/11/2018 status post 7 cycles of FOLFOX chemotherapy Coronary artery disease Nephrolithiasis Past surgical history: Coronary artery bypass grafting, 3 vessels in 2008 Exploratory laparotomy with sigmoid colectomy and biopsy of liver metastasis Social history: Patient denies any significant history of alcohol drugs or tobacco Family history: Patient denies any family history of cancer. His father was an alcoholic Review of systems: A complete 12 point review of systems is obtained and found to be negative without indicated in the history of the present illness Physical examination: General: No acute distress appearing mildly toxic appearing male HEENT: Pupils are equal round and reactive to light no scleral icterus or conjunctival pallor is appreciated, oral mucosa is moist without any evidence of oral pharyngeal lesions Cardiovascular: Clear to auscultation and percussion in bilateral posterior lungs Abdomen: Soft, nontender, nondistended without any hepatosplenomegaly, left lower quadrant colostomy bag Extremities: Warm well perfused 2+ dorsalis pedis and radial pulses bilaterally Neurologic: Alert and oriented x3 cranial nerves II through XII are intact Medications and allergies are reviewed in the electronic medical record Labs and imaging are in the electronic medical record and are reviewed personally Assessment and plan: Patient is a 59-year-old male with a history of metastatic colon cancer currently on FOLFOX chemotherapy who was admitted to 4 concerns for neutropenic fever and hypokalemia. Problem #1: Neutropenic fever Patient reports a fever at home of 101-102. His ANC is 780 on admission. He has no signs or symptoms that could point towards a source of his fever. This likely represents gut micro-biome translocation. He is currently being appropriately treated with cefepime. -We will follow-up of blood cultures from admission. -Continue cefepime -We will not use growth factors at this point as he is not critically ill Problem #2: Metastatic colon cancer Patient is K-mehul mutated, MMR proficient. He has received 7 cycles of FOLFOX with last dose on 06/19/2018. He was ineligible for her last scheduled dose on 07/06/2018 due to neutropenia and poor performance status. He did have a CT scan in May which did show response to therapy. -No interventions necessary at the moment. Wily Vasquez
[2018-07-09] MEDS: oxyCODONE IR 15 MG TAB PO PRN ×2 (02:57→08:43)
[2018-07-09] MEDS: NS 1,000 ML IV SCH (02:58)
[2018-07-09] MEDS: CEFEPIME HCL 2 GM in NS 100 ML IV SCH (04:59)
[2018-07-09] MEDS: SIMETHICONE 80 MG TAB CHEW PO PRN ×2 (05:03→08:46)
[2018-07-09 05:21] LABS: PLATELET COUNT 131 10^3/uL (150-400)
[2018-07-09] MEDS ORDERED: POTASSIUM CL 10 MEQ TAB PO ONE (08:00)
[2018-07-09 08:12] VITALS: BP 134/94
[2018-07-09] MEDS: MULTIVITAMINS 1 EACH TAB PO SCH (08:44)
[2018-07-09] MEDS: OLANZapine 2.5 MG TAB PO SCH (08:45)
[2018-07-09] MEDS: ENOXAPARIN 40 MG/0.4 ML SYR SC SCH (08:50)
[2018-07-09] MEDS ORDERED: POTASSIUM CL 20 MEQ/15 ML UDCUP PO ONE (09:00)
[2018-07-09] MEDS ORDERED: POLYETHYLENE GLYCOL 3350 17 GM PKT PO SCH (11:30)
--- NOTE | 2018-07-09 13:04 | PDIAF ---
- Diagnosis Diagnosis: Fever Code Status: Full Code - Medication Management Discharge Medications: electronically signed and located in the Home Medication List. - Orders Services needed: Home Care, Registered Nurse Home Care Face to Face: I certify that this patient was under my care and that I had the required [id number] encounter meeting the encounter requirements on the discharge day. My findings support the fact that the patient is homebound as defined in Home Care Face to Face Continued: CMS Chapter 7 Medicare Benefits Manual 30.1.1 , The condition of the patient is such that there exists a normal inability to leave home and consequently, leaving home would require a considerable and taxing effort. Isolation Type: None Diet Recommendation: no restrictions on diet Diet Texture: Regular Texture Diet - Follow Up Care Current Providers and Referrals: Dallas Diamond MD [Primary Care Provider] - As per Instructions
--- NOTE | 2018-07-09 14:35 | GDS ---
DISCHARGE DIAGNOSES: 1. Neutropenic fever. 2. Metastatic colon, diagnosed 01/11/2018, status post 7 cycles of FOLFOX chemotherapy. 3. Coronary artery disease. 4. Kidney stones. HISTORY OF PRESENT ILLNESS: A 67-year-old male with newly diagnosed metastatic colon cancer on FOLFOX therapy, admitted with neutropenic fever. Over the last 2 weeks, he has had decreased p.o. intake. He has been more fatigued and nausea. He has had decreased output out of his ostomy. HOSPITAL COURSE BY PROBLEM: 1. Neutropenic fever: no fever here. ANC was 780 on admission. UA was positive ; culture shows only yeast. Discharge on empiric Levaquin and Augmentin per Oncology's recommendation. Blood cultures are negative. 2. Metastatic colon cancer: Complicated by bowel perforation, status post resection and ostomy. He has received 7 cycles of FOLFOX, the last on 2017. His last scheduled dose was 07/06/2018 but this was held due to poor performance status and neutropenia. He will follow up with his primary oncologist. GOALS: He met with Palliative Care, which will be continued at discharge. DISPOSITION: Patient is stable for discharge home with a home nurse. FOLLOWUP: 1. Oncology. 2. Palliative Care. NEW MEDICATIONS: Augmentin, Levaquin. PHYSICAL EXAMINATION: VITAL SIGNS: Temperature 36.9 blood pressure 134/94, heart rate in the 80s, respirations 18, 92% on room air. GENERAL: Cachectic, pale, no acute distress. HEENT: PERRLA. Moist mucous membranes CV: Regular rate and rhythm. LUNGS: Clear. ABDOMEN: Soft, nontender, nondistended. Ostomy in place without issue. : No suprapubic or CVA tenderness. NEURO: 2 through 12 intact. PSYCH: Alert and oriented x3. Time spent on discharge greater than 30 minutes bedside counseling, patient coordinating with palliative care and discussing case with Dr. Vasquez /[id number]/MODL ARMANDO
--- NOTE | 2018-07-09 18:49 | SOAPPROG ---
SOAP Progress Note Assessment/Plan: Assessment: Problem #1: Neutropenic fever Patient reports a fever at home of 101-102. His ANC is 780 on admission. He has no signs or symptoms that could point towards a source of his fever. This likely represents gut micro-biome translocation. No source identified, cultures negative. -Okay to discharge on levaquin and augmentin would give for 5 days Problem #2: Metastatic colon cancer Patient is K-mehul mutated, MMR proficient. He has received 7 cycles of FOLFOX with last dose on 06/19/2018. He was ineligible for her last scheduled dose on 07/06/2018 due to neutropenia and poor performance status. He did have a CT scan in May which did show response to therapy. -No interventions necessary at the moment. -Follow-up in 1 week with his outpatient provider Wily Vasquez Plan: 07/09/18 18:49 Subjective: Patient reports feeling well without complaints, no fevers chills or sweats. No cough or SOB. No diarrhea. No skin rash. Taking PO well. Objective: Vital Signs Temp Pulse Resp BP Pulse Ox 36.9 C 87 18 134/94 H 92 07/09/18 08:00 07/09/18 08:00 07/09/18 08:00 07/09/18 08:00 07/09/18 08:00 Laboratory Results 07/09/18 05:00 07/09/18 05:00 07/08/18 07/09/18 07/10/18 05:59 05:59 05:59 Intake Total 1355 Output Total 275 825 Balance 1080 -825 Physical examination: General: No acute distress appearing mildly toxic appearing male HEENT: Pupils are equal round and reactive to light no scleral icterus or conjunctival pallor is appreciated, oral mucosa is moist without any evidence of oral pharyngeal lesions Cardiovascular: Clear to auscultation and percussion in bilateral posterior lungs Abdomen: Soft, nontender, nondistended without any hepatosplenomegaly, left lower quadrant colostomy bag Extremities: Warm well perfused 2+ dorsalis pedis and radial pulses bilaterally Neurologic: Alert and oriented x3 ICD10 Worksheet Patient Problems: Problems Problem Status Onset Colon cancer Acute Fever Acute Hypokalemia Acute Intestinal stoma prolapse Acute Neutropenic fever Acute Urinary tract infection Acute
--- NOTE | 2018-07-10 08:14 | PDPCPN ---
Palliative Care Progress Note Assessment/Plan: Assessment: [facility] [address] [place] [id number] (O) [phone](F) PALLIATIVE CARE NOTE Name: Ramsey Nur Age: 67, 48 Visit Type: Initial Location: [facility] Date: 07/08/18 Level of Care: Hospice eligible DIAGNOSES: 1. Metastatic colon carcinoma 2. Coronary artery disease 3. Chronic pain with opioid use CC: Initial palliative care visit HPI: Mister Nur is a 67-year-old male with a fairly recent diagnosis of metastatic colon carcinoma. He was diagnosed in December 2017 and had a colon resection with colostomy. He was found to have liver metastases. He has completed 8 cycles of FOLFOX. He was recently admitted to [facility] with neutropenic fever. Diagnosis of urosepsis. He was also having significant diarrhea and was found to be hypokalemic as well. He is continuing with IV antibiotics at this time. PMH: 1. Metastatic colon carcinoma 2. Coronary artery disease with [place] in 2007 followed by CABG 3. Chronic pain with opioid use Allergies: No known drug allergies Family Hx: Mother with colon carcinoma Social Hx: Lives with his in [place]. Advance Directives: Full cor MDPOA: Nadine Patient Goals of Care: 1. To return home with his 2. Continue chemotherapy treatment and eventually have his colostomy reversed ACTIVE SYMPTOMS/ASSESSMENTS/RECOMMENDATIONS 1. Metastatic colon carcinoma C 18.9: Continuing chemotherapy with FOLFOX 2. Neutropenic fever R50.81: Secondary to chemotherapy. Currently receiving broad-spectrum IV antibiotics 3. Prognosis: less than 6 months 4. Hospice Eligibility: Yes: Goals Not Aligned 5. Recommended Hospice Admitting Diagnosis: MODIFIED [place] SYMPTOM ASSESSMENT SCALE 0-none; 1-3 mild; 4-6 moderate; 7-10 severe Unable to Respond: No Delirium: 0-none Depression: 0-none Anxiety: 0 Tiredness (fatigue): 6 Drowsiness (sleepiness): 2 Pain: 0-none Nausea: 0-none Anorexia: 0-none Shortness of Breath: 0-none Secretions: 0-none Constipation: 0-none Symptom and side effect management: (acceptable to patient and family) RISK FACTORS FOR ADMISSION AND READMISSION TO THE HOSPITAL: o NEEDS ASSISTANCE WITH ADLS/FALL RISK o CAREGIVER ANXIETY o COMPROMISED FINANCIAL STATUS o INADEQUATE SUPPORT SYSTEM o >2 HOSPITALIZATIONS IN PAST 12 MONTHS o DISEASE EDUCATION DEFICIT OBJECTIVE FINDING Palliative Performance Score: 70 FAST: Not applicable NYHA: Not applicable Wt: MAC: Neuro: A&O to person, place, time and event; HEENT: Normocephalic; atraumatic RESP: Regular, deep, symmetrical. No cough or wheezing. Breath sounds CTA. CV: HR regular, no LE edema GI: soft, round colostomy in place MSK: Mild muscle wasting. Ambulatory without assistive devices. SKIN: dry, intact LAB Data: Medications: Advance Care Planning Not discussed during this visit PALLIATIVE SUMMARY: Mister Nur is a 67-year-old male with a history of metastatic colon carcinoma. He has been admitted to [facility] for neutropenic fever following his last chemotherapy administration. He is currently receiving IV antibiotics. He would like community based palliative care to continue to follow him once discharged home. I will continue to follow this patient for support, symptom management, and end- of-life discussions. PLAN: Schedule community based palliative care visit with [facility]. INTERACTIVE MEDIA MARKETING SPECIALIST: Palliative Supportive Services: Will need social work referral once discharged. Thank you for the opportunity to participate in the care of this patient. TIME SPENT: [id number] 60>50% of the time spent counseling, educating and coordinating the above topics. Ned Vanegas [facility] Plan: 07/10/18 08:14 Objective: Vital Signs Temp Pulse Resp BP Pulse Ox 36.9 C 87 18 134/94 H 92 07/09/18 08:00 07/09/18 08:00 07/09/18 08:00 07/09/18 08:00 07/09/18 08:00 Laboratory Results 07/09/18 05:00 07/09/18 05:00 07/09/18 07/10/18 07/11/18 05:59 05:59 05:59 Output Total 825 Balance -825 ICD10 Worksheet Patient Problems: Problems Problem Status Onset Colon cancer Acute Fever Acute Hypokalemia Acute Intestinal stoma prolapse Acute Neutropenic fever Acute Urinary tract infection Acute
--- NOTE | 2018-07-12 09:22 | ASDISCHSUM ---
Discharge Information Plan Status:Home with Home Health Medically Cleared to Leave:07/08/2018 Discharge Date:07/09/2018 03:41 PM D/C Disposition:Home Health Service [facility] D/C Disposition:Home, Routine, Self-Care Projected Discharge Date:07/09/2018 11:00 AM Transportation at D/C: Discharge Delay Reason: Follow-Up Date:07/09/2018 11:00 AM Discharge Slot: Final Diagnosis: Placement Information Referral Type:Palliative Care Referral ID:[id number] Provider Name:[facility] Address 1:[address] [facility] Phone Number: Address 2: Fax Number: [facility]:[place] Selection Factors: State:[place] Referral Type:*Home Health Care Services Referral ID:[id number] Provider Name:[facility] Address 1:[address] [place] [address] Address 2: [facility]:[place] Selection Factors: State:[place] Patient Contact Information Contact Name:BRYN Relationship: Address:[address] City:[place] Alternate Phone: State/Zip Code:[place] [address] Email: Financial Information Financial Class:Medicare Primary Plan Desc:MEDICARE INPATIENT Primary Plan Number:[id number] Secondary Plan Desc:Assmbly INSURANCE Secondary Plan Number:[id number] Assessment Information [facility] CM Progress Note CM Note CM Note Notes: Patient plan of care reviewed in am rounds. He is very anxious to meet with palliative care as he feel both he and his would benefit form this service. Patient seen by Phil Brumfield and Ned SON from [facility] to follow for needs. Plan to be determined. Plan: Likely dc home with support. Date Signed: 07/08/2018 02:32 PM Electronically Signed By:Flori Mary RN [facility] CM Progress Note CM Note CM Note Notes: Palliative order sent to [facility]. Date Signed: 07/08/2018 04:49 PM Electronically Signed By:Flori Mary RN Intervention Information
== END 2018-07-09 15:41 | disposition home or self-care (01) | DRG 809 ==
LOC: F1N 14:46
PROVIDERS: ADMIT Internal Medicine; ATTEND Internal Medicine
DX: D70.9 Neutropenia, unspecified (principal); C18.9 Malignant neoplasm of colon, unspecified; C78.7 Secondary malignant neoplasm of liver and intrahepatic bile duct; D61.810 Antineoplastic chemotherapy induced pancytopenia; N39.0 Urinary tract infection, site not specified; E87.6 Hypokalemia; I25.10 Atherosclerotic heart disease of native coronary artery without angina pectoris; Z93.3 Colostomy status; Z87.442 Personal history of urinary calculi; Z51.5 Encounter for palliative care; Z95.1 Presence of aortocoronary bypass graft
CPT/HCPCS: 96374; J0692; J1650; J2405; J3480

== ENCOUNTER 2018-09-21 10:00 | Inpatient (IN) | payer OTHER ==
--- NOTE | 2018-09-21 06:53 | PDHPUP ---
History & Physical Update H&P update statement: This history and physical update is based on an assessment of the patient which was completed after admission or registration (within 24 hours), but prior to the surgery/procedure. H&P update: H&P reviewed & patient examined, no change in patient's condition since H&P completed
--- NOTE | 2018-10-19 17:15 | PDGENHP ---
History and Physical - Chief Complaint colostomy - History of Present Illness 67yo M, originally had perforated sigmoid colon cancer. Operation performed in [place]. Has followed since with Dr Diamond here in [place]. Recent PET shows no residual disease in the pelvis. Patient desires takedown. Also has pretty significant prolapse which is distressing. Energy and protein intake have been ok, improving off chemo History Information - Allergies/Home Medication List Allergies/Adverse Reactions: No Known Allergies Allergy (Verified 09/18/18 16:15) Home Medications: Multivitamins [Multivitamin (*)] 1 each PO DAILY 06/27/18 [Last Taken 09/17/18] oxyCODONE IR [Oxycodone Ir (*)] 15 mg PO QID PRN 06/27/18 [Last Taken Unknown] Docusate Sodium [Colace 100 MG (*)] 100 mg PO BID PRN 09/16/18 [Last Taken Unknown] I have personally reviewed and updated: medical history, social history, surgical history Past Medical History: perforated colon cancer - Past Medical History Additional medical history: Colon cancer stage IV. CAD with history [place] in 2007 status post a CABG. Chronic pain with history of opiate use - Surgical History Additional surgical history: CABG, cath, colonoscopy, colon resection with ostomy - Family History Additional family history: Mother - with history of colon cancer - Social History Smoking Status: Never smoked Additional social history: Patient is and lives at [facility]. Cor status is full. Review of Systems Review of Systems: ROS: 10pt was reviewed & negative except for what was stated in HPI & below Physical Exam Physical Exam: Constitutional: no apparent distress, appears nourished, not in pain Eyes: PERRL, anicteric sclera, EOMI Ears, Nose, Mouth, Throat: moist mucous membranes, hearing normal, ears appear normal, no oral mucosal ulcers Cardiovascular: regular rate and rhythym, no murmur, rub, or gallop, No edema Respiratory: no respiratory distress, no rales or rhonchi, clear to auscultation Gastrointestinal: normoactive bowel sounds, soft, non-tender abdomen, other ( LLW colostomy c prolapse, abdomen otherwise soft) Genitourinary: no bladder fullness, no bladder tenderness Skin: warm, normal color, no rashes or abrasions, no fluctuance, no induration, No mottled Musculoskeletal: full muscle strength, no muscle tenderness, normal joint ROM, no joint effusions Psychiatric: interacting appropriately, not anxious, not encephalopathic, thought process linear Lymph, Heme, Immunologic: no cervical LAD, no supraclavicular LAD Assessment & Plan Assessment: stage IV colon cancer c end colostomy Plan: 67yo M c perforated colon cancer, on chemo desiring reversal - to OR for lap assisted takedown - RBA discussed includig leak - 3-5 day hoispital course discussed
[2018-10-20] MEDS ORDERED: LR 1,000 ML IV ONE (06:42)
[2018-10-20] MEDS ORDERED: BUPIVACAINE/EPI 0.5% 30 ML SDV ONE (06:53)
--- NOTE | 2018-10-20 07:03 | PDANEPAE ---
ANE History of Present Illness Lap colostomy takedown ANE Past Medical History - Cardiovascular History Hx Hypertension: No Hx Arrhythmias: No Hx Chest Pain: No Hx Coronary Artery / Peripheral Vascular Disease: Yes Hx CHF / Valvular Disease: No Hx Palpitations: No Cardiovascular History Comment: hx of cabg x3v 2009. not followed by rheumatology specialist any longer - Pulmonary History Hx COPD: No Hx Asthma/Reactive Airway Disease: No Hx Recent Upper Respiratory Infection: No Hx Oxygen in Use at Home: No Hx Sleep Apnea: No Sleep Apnea Screening Result - Last Documented: Negative - Neurologic History Hx Cerebrovascular Accident: No Hx Seizures: No Hx Dementia: No - Endocrine History Hx Diabetes: No - Renal History Hx Renal Disorders: No Renal History Comment: hx of kidney stones - Liver History Hx Hepatic Disorders: No - Neurological & Psychiatric Hx Hx Neurological and Psychiatric Disorders: No - Cancer History Hx Cancer: Yes Cancer History Comment: colon ca with chemo and radiation last chemo was 6 weeks - Congenital Disorder History Hx Congenital Disorders: No - GI History Hx Gastrointestinal Disorders: Yes Gastrointestinal History Comment: colon cancer with colectomy and colostomy placement - Other Health History Other Health History: wears glasses. full dentures - Chronic Pain History Chronic Pain: Yes (bilateral shoulders) - Surgical History Prior Surgeries: colostomy placed. cabg x3v 2010 ANE Review of Systems Review of systems is: negative Review of Systems: - Exercise capacity METS (RN): 4 METS ANE Patient History - Allergies Allergies/Adverse Reactions: No Known Allergies Allergy (Verified 09/18/18 16:15) - Home Medications Home medications: home medication list seen and reviewed Home Medications: Multivitamins [Multivitamin (*)] 1 each PO DAILY 06/27/18 [Last Taken 09/17/18] oxyCODONE IR [Oxycodone Ir (*)] 15 mg PO QID PRN 06/27/18 [Last Taken Unknown] Docusate Sodium [Colace 100 MG (*)] 100 mg PO BID PRN 09/16/18 [Last Taken Unknown] - Anes Hx Anes Hx: no prior problems - Smoking Hx Smoking Status: Never smoked - Family Anes Hx Family Hx Anesthesia Complications: none ANE Labs/Vital Signs - Labs Result Diagrams: 10/20/18 06:59 - Vital Signs Height: 180.34 cm Weight: 74.843 kg ANE Physical Exam - Airway Neck exam: FROM Mallampati Score: Class 2 Mouth exam: dentures - Pulmonary Pulmonary: no respiratory distress - Cardiovascular Cardiovascular: regular rate and rhythym, no murmur, rub, or gallop - ASA Status ASA Status: III ANE Anesthesia Plan Anesthesia Plan: general endotracheal anesthesia
[2018-10-20 07:05] LABS: PLATELET COUNT 151 10^3/uL (150-400)
[2018-10-20] MEDS ORDERED: MIDAZOLAM 2 MG/2 ML VIAL IVP ONE (07:10)
[2018-10-20] MEDS ORDERED: PROPOFOL 200 MG/20 ML VIAL ONE (07:15)
[2018-10-20] MEDS ORDERED: fentaNYL 100 MCG/2 ML INJ ONE ×3 (07:15→10:25)
[2018-10-20] MEDS ORDERED: DEXAMETHASONE 4 MG/ML VIAL ONE (07:24)
[2018-10-20] MEDS ORDERED: ONDANSETRON 4 MG/2 ML VIAL ONE (08:47)
[2018-10-20] MEDS ORDERED: SUGAMMADEX SODIUM 200 MG/2 ML VIAL IVP ONE (08:47)
[2018-10-20] MEDS ORDERED: HYDROCODONE/APAP 5/325 TAB PO PRN (09:02)
[2018-10-20] MEDS ORDERED: HYDROmorphONE/DILAUDID 2 MG/ML INJ IVP PRN (09:02)
[2018-10-20] MEDS ORDERED: LR 500 ML IV PRN (09:02)
[2018-10-20] MEDS ORDERED: NALOXONE HCL 0.4 MG/ML INJ IVP PRN (09:02)
[2018-10-20] MEDS ORDERED: ONDANSETRON 4 MG/2 ML VIAL IVP PRN ×2 (09:02→09:36)
[2018-10-20] MEDS ORDERED: BUPIVACAINE 0.5% 30 ML SDV ONE (09:07)
--- NOTE | 2018-10-20 09:35 | POSTANESTH ---
Post Anesthetic Evaluation Cardiovascular Status: Normal, Stable, Similar to Pre-Op Cond Respiratory Status: Normal, Stable, Similar to Pre-op Cond. Level of Consciousness/Mental Status: Alert and Oriented Pain Control: Adequate, Prn Tx Ordered Nausea/Vomiting Control: Adequate, Prn Tx Ordered Complications Possibly Related to Anesthesia: None Noted (VSS, report to RN)
[2018-10-20] MEDS ORDERED: HYDROmorphONE/DILAUDID 1 MG/ML INJ IVP PRN (09:36)
[2018-10-20] MEDS ORDERED: ACETAMINOPHEN 325 MG TAB PO PRN (09:36)
--- NOTE | 2018-10-20 09:36 | POSTOPPROG ---
Post Op Note Date of Operation: 10/20/18 Surgeon: Bharat Mccullough [place] Assessor: SAMARA Chan Anesthesiologist: Maria Esther Anesthesia: GET(General Endotracheal) Pre-op Diagnosis: stage IV colon cancer. Colostomy in place Post-op Diagnosis: same Procedure: Laparoscopic colostomy takedown Findings: 29EEA, leak test neg x3 Inf/Abcess present in the surg proc area at time of surgery?: No EBL: Minimal Specimen(s): distal colostomy, anastomotic rings
[2018-10-20] MEDS: fentaNYL 100 MCG/2 ML INJ IVP PRN ×3 (10:26→11:41)
--- NOTE | 2018-10-20 10:45 | GOP ---
[f rep st] OPERATIVE REPORT DATE OF OPERATION: 10/20/2018 SURGEON: Bharat Mccullough MD SLOT SHIFT MANAGER: Britney Cunha, certified surgical clothing sales assistant ANESTHESIA: General endotracheal. ANESTHESIOLOGIST: Dr. Blayne Mayo PREOPERATIVE DIAGNOSIS: Metastatic colon cancer with end-colostomy in place. POSTOPERATIVE DIAGNOSIS: Metastatic colon cancer with end-colostomy in place. PROCEDURE PERFORMED: Laparoscopic colostomy takedown. FINDINGS: Very short amount of rectal stump successfully anastomosed under no tension with a 29 EEA stapler. A leak test was negative x3. SPECIMENS: Distal colostomy and anastomotic rings to Pathology. DESCRIPTION OF PROCEDURE: The patient was greeted in the preoperative suite, and once again, risks, benefits, and alternatives were discussed. Consent was signed. He was then brought back to the operative suite, placed on the OR table in supine position. After all anesthesia machines, including SCDs were on and functioning, a world Health Organization time-out was performed. After successful induction of general anesthesia, he was placed in a low lithotomy position with all pressure points appropriately padded. A Pierce catheter was placed. His perineum and abdomen were prepped and draped in typical sterile fashion. I commenced the procedure by making a left upper quadrant cutdown through which the Veress needle was passed. I achieved pneumoperitoneum to 15 mmHg, which was well tolerated by the patient. I then inserted two 5 mm trocars, 1 in the right upper, 1 in the right lower quadrant, both under direct visualization, and an additional 5 mm trocar was placed in the mid epigastrium. I turned my attention toward the patient's pelvis. The small bowel was successfully retracted out of the area. The rectal stump was identified by tracing the 2 distal Prolene sutures from either end of the staple line. There was not much of a rectal stump, but I dissected this out appropriately. I then turned my attention toward the distal colostomy. There was redundant colon here. All of it appeared to be well perfused. It was at this time that I did go and stick a dilator up the patient's rectum and ensured that there was minimal to no adhesions over the top of it. I turned my attention then toward mobilizing the distal colostomy. It was first oversewn. An ellipse of skin was successfully taken down through the subcutaneous tissue and the colon was successfully mobilized from its stoma site. A site was selected. Approximately 4 cm was successfully cut off and passed off the specimen. A pursestring was placed to this area and the anvil to the 29 EEA was successfully placed through this. Specimen was then allowed to drop back into the patient's abdomen. The abdomen was then resufflated. The distal colon went right into the pelvis under no tension. The stapler was then brought up through the rectum. The firing pin was successfully placed onto the anvil was successfully fired with good back table inspection of the anastomotic rings. A leak test was then performed by insufflating the distal rectum with air while filling the patient's pelvis with saline. No bubbles were identified x3. I then irrigated out the patient's pelvis. Hemostasis was noted to be good. I evacuated pneumoperitoneum. Clean closure was then brought into the field. Gloves, gowns, new instruments were all changed. I reapproximated the previous colostomy site fascia with a running 0 PDS suture noting excellent fascial reapproximation. Subcutaneous tissue was irrigated with sterile saline. Local anesthesia was infiltrated into the fascia. The skin was closed with a pursestring and a dressing was subsequently placed. The skin was closed with Monocryl. Dermabond was placed to all the laparoscopic incision sites. The patient was then extubated in the operative suite and taken to PACU in satisfactory condition. DRAINS: None. COUNTS: All counts were reported as correct x2. /[id number]/MODL MTDD
[2018-10-20] MEDS: D5W 1/2 NS W/ 20 KCl/L 1,000 ML IV SCH (12:39)
[2018-10-20] MEDS: oxyCODONE IR 5 MG TAB PO PRN ×3 (13:44→22:28)
[2018-10-20] MEDS: IBUPROFEN 600 MG TAB PO SCH ×2 (13:44→21:29)
[2018-10-21] MEDS: IBUPROFEN 600 MG TAB PO SCH ×3 (05:06→21:26)
[2018-10-21] MEDS: D5W 1/2 NS W/ 20 KCl/L 1,000 ML IV SCH ×2 (05:10→19:44)
[2018-10-21] MEDS: oxyCODONE IR 5 MG TAB PO PRN ×3 (08:05→19:58)
--- NOTE | 2018-10-21 11:58 | PDMN ---
Medical Necessity Medical necessity: Pt meets inpt criteria per MD order and Gen Surgery GRG, lap colostomy takedown, MC IP only list. 67 y/o w/metastatic colon cancer stage IV w /end-colostomy in place admitted for colostomy takedown and post-op care.
--- NOTE | 2018-10-21 14:35 | ASMTCMCOM ---
CM Note CM Note Notes: Pt in for scheduled ostomy takedown. Anticipate he will dc home w/support of when medically stable. CM available for any changes. DC Plan: Independent Date Signed: 10/21/2018 02:35 PM Electronically Signed By:Che Rider RN
[2018-10-22] MEDS: IBUPROFEN 600 MG TAB PO SCH ×3 (05:03→22:35)
[2018-10-22] MEDS: oxyCODONE IR 5 MG TAB PO PRN ×3 (08:56→19:43)
[2018-10-22] MEDS: D5W 1/2 NS W/ 20 KCl/L 1,000 ML IV SCH (08:56)
--- NOTE | 2018-10-22 09:00 | SOAPPROG ---
BISHNU Progress Note Assessment/Plan: Assessment: 67yo M s/p colostomy reversal - VSS, HDs - pain is well controlled - tolerating light diet, passing flatus. Feels as tho he needs to have BM - DC gray - ambulate - home tomorrow vs Sat. Making great progress, will need to review path for any poss residual tumor Plan: 10/22/18 08:59 Subjective: feels great Objective: Vital Signs Temp Pulse Resp BP Pulse Ox 36.4 C 72 14 147/87 H 95 10/22/18 08:00 10/22/18 08:00 10/22/18 08:00 10/22/18 08:00 10/22/18 08:00 Laboratory Results 10/20/18 06:59 10/21/18 10/22/18 10/23/18 05:59 05:59 05:59 Intake Total 3900 2340 Output Total 1045 2800 Balance 2855 -460 ICD10 Worksheet Patient Problems: Problems Problem Status Onset Colon cancer Acute Fever Acute Hypokalemia Acute Intestinal stoma prolapse Acute Neutropenic fever Acute Urinary tract infection Acute
[2018-10-23] MEDS: IBUPROFEN 600 MG TAB PO SCH (05:18)
[2018-10-23] MEDS: oxyCODONE IR 5 MG TAB PO PRN (07:29)
[2018-10-23 12:23] VITALS: BP 154/98
== END 2018-10-23 14:17 | disposition home or self-care (01) | DRG 331 ==
LOC: F1N 10-20 06:38 → F3E 10-20 11:59
PROVIDERS: ADMIT Surgery; ATTEND Surgery
PROC: 0DBE4ZZ Excision of Large Intestine, Percutaneous Endoscopic Approach (ICD-10-PCS; principal; 2018-10-20 07:30)
DX: Z43.3 Encounter for attention to colostomy (principal); Z85.038 Personal history of other malignant neoplasm of large intestine; I25.10 Atherosclerotic heart disease of native coronary artery without angina pectoris; I25.2 Old myocardial infarction; G89.29 Other chronic pain; Z95.1 Presence of aortocoronary bypass graft; Z80.0 Family history of malignant neoplasm of digestive organs
CPT/HCPCS: J0696; J1100; J2250; J2405; J2704; J3010

== ENCOUNTER 2019-01-23 11:17 | Emergency (ER) | payer OTHER | END 2019-01-23 12:37 | disposition home or self-care (01) ==